=== PATIENT | female | born 1990 | race American Indian/Alaskan Native ===

== ENCOUNTER 2017-08-17 10:45 | Outpatient (CLI) | payer MEDICAID | END 2017-08-17 23:59 | disposition home or self-care (01) | LOC: LAB SPEC 10:45 | PROVIDERS: ATTEND Surgery | DX: N61.1 Abscess of the breast and nipple (principal) | CPT/HCPCS: 87070 ==

== ENCOUNTER 2023-09-03 19:15 | Emergency (ER) | payer MEDICAID ==
[~2023-09-03] VITALS: Ht 170.2 cm; Wt 109.1 kg
[2023-09-03 20:42] LABS: BASOPHILS # (AUTO) 0.1 X10'3 (0-0.2); BASOPHILS % (AUTO) 0.6 % (0-1); EOSINOPHILS # (AUTO) 0.3 X10'3 (0-0.9); EOSINOPHILS % (AUTO) 3.4 % (0-6); HEMATOCRIT 38.2 % (35.0-45.0); HEMOGLOBIN 12.5 g/dl (12.0-16.0); LYMPHOCYTES # (AUTO) 3.4 X10'3 (1.1-4.8); LYMPHOCYTES % (AUTO) 36.1 % (21-51); MEAN CORPUSCULAR HEMOGLOBIN 26.5 PG (27.0-31.0); MEAN CORPUSCULAR HGB CONC 32.6 g/dL (33.0-36.5); MEAN CORPUSCULAR VOLUME 81.2 FL (78-98); MEAN PLATELET VOLUME 6.6 FL (7.4-10.4); MONOCYTES # (AUTO) 0.5 X10'3 (0-0.9); MONOCYTES % (AUTO) 5.8 % (2-12); NEUTROPHILS % (AUTO) 54.1 % (42-75); PLATELET COUNT 399 X10'3 (140-440); RED CELL DISTRIBUTION WIDTH 14.7 % (11.5-14.5); WHITE BLOOD COUNT 9.3 X10'3 (4.5-11.0)
[2023-09-03 20:55] LABS: ALANINE AMINOTRANSFERASE 23 U/L (12-78); ALBUMIN 3.3 G/DL (3.4-5.0); ALBUMIN/GLOBULIN RATIO 0.8 (1.1-1.5); ALKALINE PHOSPHATASE 104 IU/L (46-116); ANION GAP 6 (8-16); ASPARTATE AMINO TRANSFERASE 9 U/L (10-37); BILIRUBIN,TOTAL 0.3 MG/DL (0.1-1.0); BLOOD UREA NITROGEN 15 MG/DL (7-18); BUN/CREATININE RATIO 19.7 (10.0-20.0); CALCIUM 8.8 MG/DL (8.5-10.1); CHLORIDE 109 MMOL/L (99-107); CREATININE 0.76 MG/DL (0.40-0.90); GLUCOSE 96 MG/DL (70-104); LIPASE 71 U/L (16-77); POTASSIUM 3.7 MMOL/L (3.5-5.1); SODIUM 142 MMOL/L (135-145); TOTAL CARBON DIOXIDE 26.9 MMOL/L (24-32); TOTAL PROTEIN 7.5 G/DL (6.4-8.2); eCRCL 100 ML/MIN; eGFR 87 ML/MIN
[2023-09-03] MEDS: ondansetron 4mg rapidly disintigrating tab PO ONE (21:20)
[2023-09-03] MEDS: HYDROcodone/acetaminophen 5mg/325mg tablet PO ONE (21:20)
[2023-09-03 23:03] LABS: URINE HCG NEGATIVE (NEG)
[2023-09-03 23:05] LABS: BILIRUBIN,URINE NEGATIVE (Neg); CLARITY,URINE SLIGHTLY CLOUDY (Clear); COLOR,URINE YELLOW (Yellow); GLUCOSE, URINE NEGATIVE (Neg); KETONES,URINE NEGATIVE (Neg); LEUKOCYTE ESTERASE ,URINE NEGATIVE (Neg); NITRITES, URINE NEGATIVE (Neg); OCCULT BLOOD,URINE MODERATE (Neg); PROTEIN,URINE NEGATIVE (Neg); UROBILINOGEN,URINE 0.2 E.U/dL (0.2-1.0)
[2023-09-03 23:11] LABS: UA COLLECTION TYPE CLN CATCH MIDSTREAM
[2023-09-03 23:15] LABS: BACTERIA,URINE 2+ /HPF (Neg); RENAL CELLS, URINE FEW /HPF; SQUAMOUS EPITHELIAL CELL,UR FEW /LPF (FEW); TRANSITIONAL EPI CELLS,URINE FEW /HPF; WBC,URINE 20-30 /HPF (0-4)
[2023-09-03 23:16] LABS: WBC CLUMPS,URINE MODERATE /HPF (NEGATIVE)
[2023-09-03] MEDS ORDERED: CIPR-202 PO (23:34)
[2023-09-03] MEDS ORDERED: HYDR-3965 PO (23:34)
[2023-09-03] MEDS: CefTRIAXone 1000mg IM Kit (w/lidocaine diluent) IM ONE (23:48)
[2023-09-03] MEDS: ketorolac trometh. 30mg/ml inj. IM ONE (23:49)
[2023-09-03] MEDS: acetaminophen 325mg tablet PO ONE (23:49)
[2023-09-04 00:19] VITALS: BP 120/81; PULSE 56; RESP 16; TEMP 98.2; O2SAT 98
== END 2023-09-04 00:21 | disposition home or self-care (01) ==
LOC: ER 19:15
DX: N12 Tubulo-interstitial nephritis, not specified as acute or chronic (principal); R10.31 Right lower quadrant pain; Z98.51 Tubal ligation status
CPT/HCPCS: 36415; 74176; 80053; 81001; 81025; 83690; 85025; 87088; 96372; 99285; J0696; J1885